=== PATIENT | male | born 1985 | race Caucasian/White ===

== ENCOUNTER 2023-05-08 15:57 | Emergency (ER) | payer MEDICAID ==
[2023-05-08 17:07] LABS: CORONAVIRUS COVID-19 NAA NEGATIVE (NEGATIVE); INFLUENZA A NAA NEGATIVE (NEGATIVE); RESPIRATORY SYNCYTIAL VIR NAA NEGATIVE (NEGATIVE)
[2023-05-08] MEDS ORDERED: Naloxone 0.4 MG/ML SDV IVPUSH PRN (17:10)
[2023-05-08] MEDS: Sodium Chloride 0.9% 1,000 ML IV ONE (17:39)
[2023-05-08] MEDS: HYDROmorphone 0.5 MG/0.5 ML Syringe IVPUSH ONE ×2 (17:39→19:09)
[2023-05-08] MEDS: Promethazine 25 MG/ML SDV IM ONE (17:50)
[2023-05-08 17:54] LABS: BASOPHILS ABSOLUTE AUTO 0.1 K/mm3 (0.0-0.2); BASOPHILS PERCENT AUTO 0.7 % (0.0-1.0); EOSINOPHILS ABSOLUTE AUTO 0.2 K/mm3 (0.0-0.4); HEMATOCRIT 47.2 % (42.0-52.0); HEMOGLOBIN 16.4 gm/dl (14.0-18.0); IMMATURE GRAN ABSOLUTE AUTO 0.03 K/mm3 (0.00-0.05); IMMATURE GRAN PERCENT AUTO 0.3 % (0.0-0.4); LYMPHOCYTES ABSOLUTE AUTO 2.8 K/mm3 (1.0-4.8); LYMPHOCYTES PERCENT AUTO 28.6 % (24.0-44.0); MEAN CORPUSCULAR HEMOGLOBIN 28.5 pg (28.0-32.0); MEAN CORPUSCULAR HGB CONC 34.7 g/dl (32.0-36.0); MEAN CORPUSCULAR VOLUME 81.9 fl (83.0-99.0); MEAN PLATELET VOLUME 10.7 fl (9.4-12.4); MONOCYTES ABSOLUTE AUTO 0.6 K/mm3 (0.0-0.8); MONOCYTES PERCENT AUTO 6.2 % (0.0-8.0); NEUTROPHILS ABSOLUTE AUTO 6.1 K/mm3 (1.8-7.7); NEUTROPHILS PERCENT AUTO 62.2 % (41.0-71.0); PLATELET COUNT,PLT 245 K/mm3 (150-400); RED BLOOD CELL COUNT 5.76 M/mm3 (4.52-5.90); WHITE BLOOD CELL COUNT,WBC 9.77 K/mm3 (3.9-11.3)
[2023-05-08 18:24] LABS: BILIRUBIN TOTAL 0.3 mg/dL (0.2-1.0); BUN/CREATININE RATIO 8.3 (14-18); CREATININE 1.2 mg/dL (0.7-1.3); EST CRCL DRUG DOSING (CG) 88.02 mL/min; MAGNESIUM 2.3 mg/dL (1.8-2.4); PROTEIN TOTAL,TP 7.9 g/dl (6.4-8.2); TSH 1.763 uIU/mL (0.358-3.74)
[2023-05-08 21:32] LABS: APPEARANCE,URINE CLEAR (Clear); BILIRUBIN,URINE NEGATIVE (Negative); COLOR,URINE YELLOW (Yellow); GLUCOSE,URINE NEGATIVE (Negative); KETONES,URINE NEGATIVE (Negative); LEUKOCYTE ESTERASE,URINE NEGATIVE (Negative); NITRITE,URINE NEGATIVE (Negative); OCCULT BLOOD,URINE NEGATIVE (Negative); PROTEIN,URINE NEGATIVE (Negative); UROBILINOGEN,URINE 0.2 (0.2-1.0)
[2023-05-08 23:01] LABS: BACTERIA,URINE FEW /hpf (FEW); MUCUS,URINE FEW /hpf (FEW); RBC,URINE 0-5 /hpf (0-5); SQUAMOUS EPITHELIAL CELLS,UR 0-5 /hpf (0-5); WBC,URINE 0-5 /hpf (0-5)
== END 2023-05-08 22:00 | disposition home or self-care (01) ==
LOC: JD.ED 15:57
DX: R51.9 Headache, unspecified (principal); Z88.5 Allergy status to narcotic agent
CPT/HCPCS: 0241U; 36415; 70450; 80053; 81001; 83735; 84443; 85025; 96361; 96372; 96374; 96376; 99284; J1170; J2550; J7030

== ENCOUNTER 2024-02-08 04:15 | Emergency (ER) | payer MEDICAID ==
[2024-02-08] MEDS ORDERED: Sodium Chloride 0.9% 10 ML Syringe FLUSH PRN (04:28)
[2024-02-08] MEDS ORDERED: Naloxone 0.4 MG/ML SDV IVPUSH PRN (04:46)
[2024-02-08] MEDS: HYDROmorphone 0.5 MG/0.5 ML Syringe IVPUSH ONE (05:01)
[2024-02-08] MEDS: Colchicine 0.6 MG Tab PO ONE ×2 (05:01)
[2024-02-08] MEDS: Sodium Chloride 0.9% 1,000 ML IV ONE (05:01)
[2024-02-08 05:23] LABS: ALBUMIN 4.1 g/dl (3.4-5.0); ANION GAP 14.1 (5-15); BILIRUBIN TOTAL 0.8 mg/dL (0.2-1.0); BUN/CREATININE RATIO 7.3 (14-18); CREATININE 1.5 mg/dL (0.7-1.3); EST CRCL DRUG DOSING (CG) 67.59 mL/min; POTASSIUM,K 4.1 mEq/L (3.5-5.1); PROTEIN TOTAL,TP 8.4 g/dl (6.4-8.2); URIC ACID 8.1 mg/dL (3.5-7.2)
[2024-02-08 05:28] LABS: BASOPHILS ABSOLUTE AUTO 0.1 K/mm3 (0.0-0.2); BASOPHILS PERCENT AUTO 0.5 % (0.0-1.0); EOSINOPHILS ABSOLUTE AUTO 0.1 K/mm3 (0.0-0.4); EOSINOPHILS PERCENT AUTO 1.1 % (0.0-6.0); HEMATOCRIT 47.9 % (42.0-52.0); HEMOGLOBIN 16.6 gm/dl (14.0-18.0); IMMATURE GRAN ABSOLUTE AUTO 0.03 K/mm3 (0.00-0.05); IMMATURE GRAN PERCENT AUTO 0.3 % (0.0-0.4); LYMPHOCYTES ABSOLUTE AUTO 1.9 K/mm3 (1.0-4.8); LYMPHOCYTES PERCENT AUTO 19.7 % (24.0-44.0); MEAN CORPUSCULAR HEMOGLOBIN 27.9 pg (28.0-32.0); MEAN CORPUSCULAR HGB CONC 34.7 g/dl (32.0-36.0); MEAN CORPUSCULAR VOLUME 80.5 fl (83.0-99.0); MONOCYTES ABSOLUTE AUTO 0.9 K/mm3 (0.0-0.8); NEUTROPHILS ABSOLUTE AUTO 6.9 K/mm3 (1.8-7.7); NEUTROPHILS PERCENT AUTO 69.4 % (41.0-71.0); PLATELET COUNT,PLT 249 K/mm3 (150-400); RED BLOOD CELL COUNT 5.95 M/mm3 (4.52-5.90); WHITE BLOOD CELL COUNT,WBC 9.87 K/mm3 (3.9-11.3)
[2024-02-08] MEDS: Ketorolac 30 MG/ML SDV IVPUSH ONE (06:34)
[2024-02-08] MEDS: Dexamethasone 4 MG/ML SDV IVPUSH ONE (06:34)
== END 2024-02-08 07:30 | disposition home or self-care (01) ==
LOC: JD.ED 04:15
DX: M10.9 Gout, unspecified (principal); Z88.5 Allergy status to narcotic agent
CPT/HCPCS: 36415; 80053; 84550; 85025; 96374; 96375; 99283; A9270; J1100; J1171; J1885; J7030

== ENCOUNTER → 2024-03-19 11:36 | Emergency (ER) | payer SELFPAY | END | disposition left against medical advice (07) | LOC: JD.ED 11:36 | DX: Z53.21 Procedure and treatment not carried out due to patient leaving prior to being seen by health care provider (principal) ==

== ENCOUNTER 2024-03-19 14:36 | Emergency (ER) | payer SELFPAY ==
[2024-03-19 15:47] LABS: BASOPHILS ABSOLUTE AUTO 0.1 K/mm3 (0.0-0.2); BASOPHILS PERCENT AUTO 0.4 % (0.0-1.0); EOSINOPHILS ABSOLUTE AUTO 0.1 K/mm3 (0.0-0.4); EOSINOPHILS PERCENT AUTO 0.5 % (0.0-6.0); HEMATOCRIT 51.3 % (42.0-52.0); HEMOGLOBIN 17.3 gm/dl (14.0-18.0); IMMATURE GRAN ABSOLUTE AUTO 0.12 K/mm3 (0.00-0.05); IMMATURE GRAN PERCENT AUTO 0.7 % (0.0-0.4); LYMPHOCYTES ABSOLUTE AUTO 2.4 K/mm3 (1.0-4.8); LYMPHOCYTES PERCENT AUTO 14.8 % (24.0-44.0); MEAN CORPUSCULAR HEMOGLOBIN 27.5 pg (28.0-32.0); MEAN CORPUSCULAR HGB CONC 33.7 g/dl (32.0-36.0); MEAN CORPUSCULAR VOLUME 81.7 fl (83.0-99.0); MEAN PLATELET VOLUME 10.7 fl (9.4-12.4); MONOCYTES ABSOLUTE AUTO 1.3 K/mm3 (0.0-0.8); NEUTROPHILS ABSOLUTE AUTO 12.5 K/mm3 (1.8-7.7); NEUTROPHILS PERCENT AUTO 75.6 % (41.0-71.0); PLATELET COUNT,PLT 285 K/mm3 (150-400); RED BLOOD CELL COUNT 6.28 M/mm3 (4.52-5.90); WHITE BLOOD CELL COUNT,WBC 16.47 K/mm3 (3.9-11.3)
[2024-03-19 16:27] LABS: A/G RATIO 0.8 (1-2); ALANINE AMINOTRANSFERASE,ALT 49 U/L (16-63); ALKALINE PHOSPHATASE 98 U/L (46-116); ANION GAP 14.1 (5-15); ASPARTATE AMNIOTRANSFERASE,AST 20 U/L (15-37); BILIRUBIN TOTAL 0.8 mg/dL (0.2-1.0); BLOOD UREA NITROGEN,BUN 14 mg/dL (7-18); BUN/CREATININE RATIO 9.3 (14-18); C-REACTIVE PROTEIN 6.57 mg/dL (<0.30); CALCIUM 9.7 mg/dL (8.5-10.1); CARBON DIOXIDE,CO2 26 mEq/L (21-32); CHLORIDE,CL 102 mEq/L (98-107); CREATININE 1.5 mg/dL (0.7-1.3); EST CRCL DRUG DOSING (CG) 69.72 mL/min; ESTIMATED GFR 60 mL/min (>60); GLUCOSE RANDOM 118 mg/dL (70-99); MAGNESIUM 2.1 mg/dL (1.8-2.4); POTASSIUM,K 4.1 mEq/L (3.5-5.1); SODIUM,NA 138 mEq/L (136-145)
[2024-03-19 16:42] LABS: LACTIC ACID 3.5 mmol/L (0.4-2.0)
[2024-03-19 16:43] LABS: TROPONIN I HIGH SENSITIVITY < 4 pg/mL (<=76)
[2024-03-19] MEDS: Sodium Chloride 0.9% 1,000 ML IV ONE (16:51)
[2024-03-19] MEDS: HYDROmorphone 0.5 MG/0.5 ML Syringe IVPUSH PRN (16:52)
[2024-03-19] MEDS: Iopamidol 612 MG/ML 100 ML Bottle IVPUSH ONE (17:19)
[2024-03-19] MEDS: HYDROmorphone 0.5 MG/0.5 ML Syringe IVPUSH ONE ×2 (17:36→20:18)
[2024-03-19 19:01] LABS: APPEARANCE,URINE CLEAR (Clear); BILIRUBIN,URINE NEGATIVE (Negative); COLOR,URINE YELLOW (Yellow); GLUCOSE,URINE NEGATIVE (Negative); KETONES,URINE NEGATIVE (Negative); LEUKOCYTE ESTERASE,URINE NEGATIVE (Negative); NITRITE,URINE NEGATIVE (Negative); OCCULT BLOOD,URINE NEGATIVE (Negative); PH,URINE 5.5 (5.0-8.0); PROTEIN,URINE NEGATIVE (Negative); UROBILINOGEN,URINE 0.2 (0.2-1.0)
[2024-03-19] MEDS ORDERED: Naloxone 0.4 MG/ML SDV IVPUSH PRN (20:05)
[2024-03-19] MEDS: STERILE IV ONE (20:17)
[2024-03-19] MEDS: WATER FOR INJECTION IV ONE (20:17)
[2024-03-19] MEDS: CEFTRIAXONE IV ONE (20:17)
[2024-03-19] MEDS: Ketorolac 30 MG/ML SDV IVPUSH ONE (20:53)
[2024-03-19] MEDS: Ondansetron 4 MG/2 ML SDV IVPUSH ONE (20:54)
[2024-03-19] MEDS: Sodium Chloride 0.9% 50 ML ONE (21:16)
== END 2024-03-19 21:50 | disposition home or self-care (01) ==
LOC: JD.ED 14:36
DX: R10.84 Generalized abdominal pain (principal); Z88.5 Allergy status to narcotic agent; Z79.899 Other long term (current) drug therapy
CPT/HCPCS: 36415; 74177; 80053; 81003; 83605; 83735; 84484; 85025; 86140; 87040; 96361; 96374; 96375; 96376; 99285; J0696; J1885; J2405; J7030; Q9967

== ENCOUNTER 2024-03-20 21:02 | Emergency (ER) | payer SELFPAY ==
[2024-03-20] MEDS ORDERED: Sodium Chloride 0.9% 10 ML Syringe FLUSH PRN (22:48)
[2024-03-20] MEDS ORDERED: Naloxone 0.4 MG/ML SDV IVPUSH PRN (23:03)
[2024-03-20 23:37] LABS: BASOPHILS PERCENT AUTO 0.4 % (0.0-1.0); EOSINOPHILS ABSOLUTE AUTO 0.2 K/mm3 (0.0-0.4); HEMATOCRIT 42.4 % (42.0-52.0); HEMOGLOBIN 14.2 gm/dl (14.0-18.0); IMMATURE GRAN ABSOLUTE AUTO 0.04 K/mm3 (0.00-0.05); IMMATURE GRAN PERCENT AUTO 0.4 % (0.0-0.4); LYMPHOCYTES ABSOLUTE AUTO 2.6 K/mm3 (1.0-4.8); LYMPHOCYTES PERCENT AUTO 27.7 % (24.0-44.0); MEAN CORPUSCULAR HEMOGLOBIN 27.5 pg (28.0-32.0); MEAN CORPUSCULAR HGB CONC 33.5 g/dl (32.0-36.0); MEAN PLATELET VOLUME 10.6 fl (9.4-12.4); MONOCYTES PERCENT AUTO 10.1 % (0.0-8.0); NEUTROPHILS ABSOLUTE AUTO 5.7 K/mm3 (1.8-7.7); NEUTROPHILS PERCENT AUTO 59.4 % (41.0-71.0); PLATELET COUNT,PLT 227 K/mm3 (150-400); RED BLOOD CELL COUNT 5.17 M/mm3 (4.52-5.90); WHITE BLOOD CELL COUNT,WBC 9.51 K/mm3 (3.9-11.3)
[2024-03-20] MEDS: Ondansetron 4 MG/2 ML SDV IVPUSH ONE (23:52)
[2024-03-20] MEDS: HYDROmorphone 1 MG/ML Syringe IVPUSH ONE (23:52)
[2024-03-21 00:13] LABS: LACTIC ACID 1.2 mmol/L (0.4-2.0)
[2024-03-21 00:22] LABS: A/G RATIO 0.8 (1-2); ALBUMIN 3.3 g/dl (3.4-5.0); ANION GAP 13.7 (5-15); BILIRUBIN TOTAL 0.4 mg/dL (0.2-1.0); BUN/CREATININE RATIO 12.9 (14-18); C-REACTIVE PROTEIN 4.66 mg/dL (<0.30); CALCIUM 8.8 mg/dL (8.5-10.1); CREATININE 1.4 mg/dL (0.7-1.3); EST CRCL DRUG DOSING (CG) 74.7 mL/min; POTASSIUM,K 3.7 mEq/L (3.5-5.1); PROTEIN TOTAL,TP 7.3 g/dl (6.4-8.2)
[2024-03-21 00:30] LABS: APPEARANCE,URINE CLEAR (Clear); BILIRUBIN,URINE NEGATIVE (Negative); COLOR,URINE YELLOW (Yellow); GLUCOSE,URINE NEGATIVE (Negative); KETONES,URINE NEGATIVE (Negative); LEUKOCYTE ESTERASE,URINE NEGATIVE (Negative); NITRITE,URINE NEGATIVE (Negative); OCCULT BLOOD,URINE NEGATIVE (Negative); PH,URINE 5.5 (5.0-8.0); PROTEIN,URINE NEGATIVE (Negative); UROBILINOGEN,URINE 0.2 (0.2-1.0)
[2024-03-21] MEDS: HYDROmorphone 0.5 MG/0.5 ML Syringe IVPUSH ONE ×2 (01:49→04:19)
[2024-03-21] MEDS: Sodium Chloride 0.9% 100 ML IV SCH (01:56)
[2024-03-21] MEDS: Sodium Chloride 0.9% 10 ML Syringe FLUSH ONE (01:56)
[2024-03-21] MEDS: Iopamidol 755 Mg/ML 100 ML Bottle IVPUSH ONE (01:56)
== END 2024-03-21 04:22 | disposition home or self-care (01) ==
LOC: JD.ED 21:02
DX: R09.1 Pleurisy (principal); Z90.49 Acquired absence of other specified parts of digestive tract; Z88.5 Allergy status to narcotic agent; Z79.52 Long term (current) use of systemic steroids; Z79.899 Other long term (current) drug therapy
CPT/HCPCS: 36415; 71275; 80053; 81003; 83605; 83690; 83735; 84484; 85025; 85379; 86140; 93005; 96374; 96375; 96376; 99285; J1171; J2405; Q9967

== ENCOUNTER 2024-03-22 20:24 | Emergency (ER) | payer SELFPAY ==
[2024-03-22] MEDS ORDERED: Ketorolac 60 MG/2 ML SDV IM ONE (20:57)
[2024-03-22 21:03] LABS: BASOPHILS PERCENT AUTO 0.5 % (0.0-1.0); EOSINOPHILS ABSOLUTE AUTO 0.1 K/mm3 (0.0-0.4); EOSINOPHILS PERCENT AUTO 0.7 % (0.0-6.0); HEMOGLOBIN 14.6 gm/dl (14.0-18.0); IMMATURE GRAN ABSOLUTE AUTO 0.03 K/mm3 (0.00-0.05); IMMATURE GRAN PERCENT AUTO 0.4 % (0.0-0.4); LYMPHOCYTES ABSOLUTE AUTO 0.9 K/mm3 (1.0-4.8); LYMPHOCYTES PERCENT AUTO 11.4 % (24.0-44.0); MEAN CORPUSCULAR HEMOGLOBIN 27.4 pg (28.0-32.0); MEAN CORPUSCULAR VOLUME 80.7 fl (83.0-99.0); MEAN PLATELET VOLUME 11.3 fl (9.4-12.4); MONOCYTES ABSOLUTE AUTO 0.5 K/mm3 (0.0-0.8); MONOCYTES PERCENT AUTO 5.6 % (0.0-8.0); NEUTROPHILS ABSOLUTE AUTO 6.7 K/mm3 (1.8-7.7); NEUTROPHILS PERCENT AUTO 81.4 % (41.0-71.0); PLATELET COUNT,PLT 130 K/mm3 (150-400); RED BLOOD CELL COUNT 5.33 M/mm3 (4.52-5.90); WHITE BLOOD CELL COUNT,WBC 8.24 K/mm3 (3.9-11.3)
[2024-03-22] MEDS: Sodium Chloride 0.9% 1,000 ML IV SCH (21:23)
[2024-03-22] MEDS: Ketorolac 30 MG/ML SDV IVPUSH ONE (21:23)
[2024-03-22 21:24] LABS: A/G RATIO 0.9 (1-2); ALBUMIN 3.6 g/dl (3.4-5.0); BILIRUBIN TOTAL 0.3 mg/dL (0.2-1.0); BUN/CREATININE RATIO 6.4 (14-18); C-REACTIVE PROTEIN 2.26 mg/dL (<0.30); CALCIUM 8.9 mg/dL (8.5-10.1); CREATININE 1.4 mg/dL (0.7-1.3); EST CRCL DRUG DOSING (CG) 76.98 mL/min; PROTEIN TOTAL,TP 7.8 g/dl (6.4-8.2)
[2024-03-22 21:26] LABS: LACTIC ACID 1.6 mmol/L (0.4-2.0)
[2024-03-22] MEDS: Acetaminophen 325 MG Tab PO ONE (22:05)
[2024-03-22 22:20] LABS: BARBITURATE SCREEN,URINE NEGATIVE (CUTOFF=200); BENZODIAZEPINES SCREEN,URINE NEGATIVE (CUTOFF=150); BUPRENORPHINE SCREEN,URINE NEGATIVE (CUTOFF=10); METHADONE SCREEN, URINE NEGATIVE (CUT0FF=200); METHAMPHETAMINES SCREEN, URINE NEGATIVE (CUTOFF=500); OXYCODONE SCREEN,URINE NEGATIVE (CUT0FF=100); THC SCREEN,URINE 20 NG/ML NEGATIVE (CUTOFF=50)
[2024-03-22 22:29] LABS: AMPHETAMINES SCREEN, URINE NEGATIVE (CUTOFF=500)
[2024-03-22 22:31] LABS: APPEARANCE,URINE CLEAR (Clear); BILIRUBIN,URINE NEGATIVE (Negative); COLOR,URINE YELLOW (Yellow); GLUCOSE,URINE NEGATIVE (Negative); KETONES,URINE NEGATIVE (Negative); LEUKOCYTE ESTERASE,URINE NEGATIVE (Negative); NITRITE,URINE NEGATIVE (Negative); OCCULT BLOOD,URINE NEGATIVE (Negative); PH,URINE 7.5 (5.0-8.0); PROTEIN,URINE NEGATIVE (Negative)
== END 2024-03-22 22:51 | disposition home or self-care (01) ==
LOC: JD.ED 20:24
DX: M54.6 Pain in thoracic spine (principal); Z90.49 Acquired absence of other specified parts of digestive tract; Z88.5 Allergy status to narcotic agent; Z79.52 Long term (current) use of systemic steroids; Z79.899 Other long term (current) drug therapy
CPT/HCPCS: 36415; 71045; 80053; 80306; 81003; 83605; 83690; 85025; 86140; 93005; 96361; 96374; 99284; A9270; J1885; J7030